=== PATIENT | male | born 1965 | race Caucasian/White ===

== ENCOUNTER → 2016-06-04 | Outpatient (CLI) | payer MEDICAID ==
--- NOTE | 2016-06-04 14:37 | US ---
Complete Retroperitoneal Ultrasound History: Possible nephrolithiasis. Comparison: Plain film abdomen April 13, 2016. Findings: The right kidney measures 12.2 x 6.7 x 6.7 cm and the left kidney measures 12.4 x 6.0 x 6.6 cm. There are small echogenic foci in the kidneys bilaterally that could represent artifact or nonob structing stones, measuring up to 7 mm bilaterally. The kidneys otherwise have normal echotexture, co rtical thickness, and contour without pelvocaliectasis. Diffuse fatty infiltration of the liver is no chastity. The bladder is decompressed on prevoid imaging, measuring 32 mm. Post void imaging was not performed. Ureteral jets were not visualized. Impression: 1. Bilateral echogenic foci that could be related to artifact or nonobstructing nephrolithiasis. 2. Fatty liver. 3. Additional findings as above.
== END ==
LOC: BRMIMAGING 13:33
PROVIDERS: ATTEND Physician Assistant Medical
DX: N20.1 Calculus of ureter (principal); K76.0 Fatty (change of) liver, not elsewhere classified
CPT/HCPCS: 76770-PO

== ENCOUNTER 2016-08-15 12:21 | Day surgery (SDC) | payer MEDICAID ==
[2016-08-15 13:16] LABS: INR 1.14 (0.83-1.16); PROTIME(PATIENT) 14.5 SEC (12.0-15.0)
--- NOTE | 2016-08-15 13:24 | CPEKG ---
Heart Rate: 119 RR Interval: 504 QRSD Interval: 90 QT Interval: 320 QTC Interval: 451 QRS Heppner: -18 T Wave Heppner: -70 EKG Severity - ABNORMAL ECG - EKG Impression: ATRIAL FIBRILLATION, V-RATE 85-179 EKG Impression: BORDERLINE LEFT AXIS DEVIATION EKG Impression: NONSPECIFIC T ABNORMALITIES, DIFFUSE LEADS Electronically Signed By: Talon Ramos 15-Aug-2016 16:24:30
[2016-08-15] MEDS ORDERED: LR 1,000 ML IV ONE (13:31)
[2016-08-15] MEDS ORDERED: ALBUTEROL 3 ML DEYVIAL ONE (13:41)
[2016-08-15] MEDS ORDERED: PROPOFOL 200 MG/20 ML VIAL ONE ×3 (13:59→14:18)
--- NOTE | 2016-08-15 15:09 | GPN ---
[f rep st] PROCEDURE NOTE PROCEDURE PERFORMED: Colonoscopy. INDICATION: The patient is a 51-year-old male who has had approximately 15 years of abdominal pain and altered bowel habits, tending mostly constipation. This seems to have been a problem ever since a right hemicolectomy for some form of colonic narrowing. Colonoscopy is being performed to evalua te for any structural explanation for his symptoms. PROCEDURE: After the proper consent was obtained, patient placed in lithotomy position, received IV general anesthesia due to his ASA class of 3. Video colonoscope was introduced through the anus and rectum up the left colon, across the transvers e colon to the ileocolonic anastomosis. The anastomosis is widely patent, and I am able to easily t raverse into the ileum. On retraction of the instrument, no polyps, tumors, lesions, or strictures are noted. At this point, instrument was removed. Patient tolerated procedure well, and was returned to [facility] in stable condition. RECOMMENDATIONS: 1. For colon cancer screening, next colonoscopy in 10 years' time. 2. I think it is worthwhile to treat this patient for having irritable bowel syndrome with constipa tion. I suggested Linzess 290 mcg daily as an empiric trial. /[id number]/MODL
== END 2016-08-15 15:50 | disposition home or self-care (01) ==
LOC: FSGY 12:21
PROVIDERS: ATTEND Internal Medicine Gastroenterology
PROC: 0DJD8ZZ Inspection of Lower Intestinal Tract, Via Natural or Artificial Opening Endoscopic (ICD-10-PCS; principal; 2016-08-15 13:45)
DX: R10.9 Unspecified abdominal pain (principal); R19.4 Change in bowel habit; R14.0 Abdominal distension (gaseous); E66.01 Morbid (severe) obesity due to excess calories; M10.9 Gout, unspecified; E78.5 Hyperlipidemia, unspecified; I10 Essential (primary) hypertension; K58.9 Irritable bowel syndrome, unspecified; G47.33 Obstructive sleep apnea (adult) (pediatric); J45.909 Unspecified asthma, uncomplicated; I48.91 Unspecified atrial fibrillation; I27.2 Other secondary pulmonary hypertension; Z90.49 Acquired absence of other specified parts of digestive tract; Z79.01 Long term (current) use of anticoagulants
CPT/HCPCS: J2704

== ENCOUNTER → 2017-01-16 | Outpatient (CLI) | payer MEDICAID | LOC: FIMAGING 09:54 → EDSTATUS 11:41 | PROVIDERS: ATTEND Specialist | DX: N20.0 Calculus of kidney (principal) ==

== ENCOUNTER → 2017-01-22 | Outpatient (CLI) | payer MEDICAID | LOC: FIMAGING 09:01 | PROVIDERS: ATTEND Physician Assistant Medical | DX: N20.0 Calculus of kidney (principal); R31.9 Hematuria, unspecified ==

== ENCOUNTER 2017-01-24 10:58 | Day surgery (SDC) | payer MEDICAID ==
[2017-01-24] MEDS ORDERED: LR 1,000 ML IV ONE (11:09)
[2017-01-24 11:59] LABS: INR 1.16 (0.83-1.16); PROTIME(PATIENT) 14.8 SEC (12.0-15.0)
[2017-01-24] MEDS ORDERED: LIDOCAINE 1% 2 ML INJ ID PRN (12:00)
[2017-01-24] MEDS ORDERED: levOFLOXACIN 500 MG/DEXTROSE 100 ML IV ONE (12:00)
[2017-01-24] MEDS ORDERED: IOPAMIDOL (ISOVUE-M 300) 15 ML VIAL ONE ×2 (12:31→14:36)
[2017-01-24] MEDS ORDERED: LIDOCAINE 2% JELLY 20 ML (UROJECT) ONE (12:31)
[2017-01-24] MEDS ORDERED: ALBUTEROL 3 ML DEYVIAL IH PRN (13:19)
[2017-01-24] MEDS ORDERED: ONDANSETRON 4 MG/2 ML VIAL IVP PRN (13:19)
[2017-01-24] MEDS ORDERED: ACETAMINOPHEN 500 MG TAB PO PRN (13:19)
[2017-01-24] MEDS ORDERED: NALOXONE HCL 0.4 MG/ML INJ IVP PRN (13:19)
--- NOTE | 2017-01-24 13:21 | PDANEPAE ---
ANE History of Present Illness Uerteroscopy w/ laser ANE Past Medical History - Cardiovascular History Hx Hypertension: Yes Hx Arrhythmias: Yes Hx Chest Pain: No Hx Coronary Artery / Peripheral Vascular Disease: No Hx CHF / Valvular Disease: No Hx Palpitations: No Cardiovascular History Comment: afib intermittent. htn. hyperlipidemia. [place] [facility] [place] in 4 yrs - Pulmonary History Hx COPD: No Hx Asthma/Reactive Airway Disease: Yes Hx Recent Upper Respiratory Infection: No Hx Oxygen in Use at Home: Yes Hx Sleep Apnea: Yes Sleep Apnea Screening Result - Last Documented: Positive Pulmonary History Comment: asthma- hasn't been a problem in a couple years. uses 3L 02 instead of cpap for junior. 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 constant stomach issues. hx of bowel resection 17 yrs ago - Other Health History Other Health History: gout - Chronic Pain History Chronic Pain: No (STOMACH AND BACK) - Surgical History Prior Surgeries: removal of brain tumor 2014 and vertebrae repair 1.5 yrs ago 2015. 17 yrs ago 1ft removed of bowel for tumor ANE Review of Systems Review of Systems: - Exercise capacity METS (RN): 4 METS ANE Patient History - Allergies Allergies/Adverse Reactions: No Known Allergies Allergy (Verified 08/13/16 13:56) - Home Medications Home Medications: Allopurinol 08/13/16 [Last Taken 01/23/17] Keppra 08/13/16 [Last Taken 01/24/17 09:30] Metoprolol Tartrate 08/13/16 [Last Taken 01/24/17 09:30] Warfarin Sodium 08/13/16 [Last Taken 01/18/17] [place] 5/325 (*) PRN 01/24/17 [Last Taken 01/24/17 06:00] - NPO status NPO Since - Liquids (Date): 01/24/17 NPO Since - Liquids (Time): 00:00 NPO Since - Solids (Date): 01/23/17 NPO Since - Solids (Time): 18:00 - Smoking Hx Smoking Status: Never smoked - Family Anes Hx Family Hx Anesthesia Complications: none ANE Labs/Vital Signs - Vital Signs Blood Pressure: 153/94 Heart Rate: 84 Respiratory Rate: 16 O2 Sat (%): 93 Height: 177.8 cm Weight: 145.15 kg ANE Physical Exam - Airway Neck exam: FROM Mallampati Score: Class 2 Mouth exam: normal dental/mouth exam - Pulmonary Pulmonary: clear to auscultation - Cardiovascular Cardiovascular: regular rate and rhythym - ASA Status ASA Status: III ANE Anesthesia Plan Anesthesia Plan: GA w LMA
[2017-01-24] MEDS ORDERED: LIDOCAINE 2% 5 ML SDV ONE (13:29)
[2017-01-24] MEDS ORDERED: PROPOFOL/EMULSION 500 MG/50 ML BOTTLE IV ONE (13:29)
[2017-01-24] MEDS ORDERED: fentaNYL 100 MCG/2 ML INJ ONE ×4 (13:31→16:22)
[2017-01-24] MEDS ORDERED: ONDANSETRON 4 MG/2 ML VIAL ONE (13:33)
[2017-01-24] MEDS ORDERED: DEXAMETHASONE 4 MG/ML VIAL ONE (13:33)
--- NOTE | 2017-01-24 13:37 | PDHPUP ---
History & Physical Update H&P update statement: This history and physical update is based on an assessment of the patient which was completed after admission or registration (within 24 hours), but prior to the surgery/procedure. H&P update: no change in patient's condition since H&P completed
--- NOTE | 2017-01-24 14:43 | POSTOPPROG ---
Post Op Note Date of Operation: 01/24/17 Surgeon: Rayo Albarado Anesthesia: GET(General Endotracheal) Pre-op Diagnosis: Right proximal ureteral calculus Post-op Diagnosis: Right UPJ calculus Procedure: Right ureteroscopy w/ calculus manipulation, ureteral stent placement Findings: See op note Inf/Abcess present in the surg proc area at time of surgery?: No EBL: Minimal Complications: None Drains: Other (4.7 Fr. x 26 cm right ureteral stent) Specimen(s): None
[2017-01-24] MEDS ORDERED: PHENAZOPYRIDINE HCL 200 MG TAB PO ONE (14:45)
--- NOTE | 2017-01-24 15:07 | POSTANESTH ---
Post Anesthetic Evaluation Cardiovascular Status: Normal, Stable Respiratory Status: Normal, Stable Level of Consciousness/Mental Status: Can Participate in Eval, Alert and Oriented Pain Control: Adequate, Prn Tx Ordered Nausea/Vomiting Control: Adequate, Prn Tx Ordered Complications Possibly Related to Anesthesia: None Noted
[2017-01-24] MEDS ORDERED: PHENAZOPYRIDINE HCL 200 MG TAB ONE (15:08)
--- NOTE | 2017-01-24 15:10 | POSTOPPROG ---
Post Op Note Date of Operation: 01/24/17 Surgeon: Rayo Albarado ([id number]) Anesthesia: GET(General Endotracheal) Pre-op Diagnosis: Right proximal ureteral calculus Post-op Diagnosis: Right UPJ calculus Procedure: Ureteroscopy w/ calculus manipulation, ureteral stent placement Findings: See op note Inf/Abcess present in the surg proc area at time of surgery?: No EBL: Minimal Complications: None Drains: Other (4.7 Fr. x 26 cm right ureteral stent)
[2017-01-24] MEDS: fentaNYL 100 MCG/2 ML INJ IVP PRN ×3 (15:23→16:25)
[2017-01-24 15:35] VITALS: TEMP 97.9
[2017-01-24 16:10] VITALS: PULSE 80; RESP 16
[2017-01-24] MEDS ORDERED: HYDROCODONE/APAP 5/325 TAB PO PRN (16:52)
[2017-01-24 17:13] VITALS: BP 133/99; O2SAT 95
--- NOTE | 2017-01-24 17:46 | GOP ---
[f rep st] OPERATIVE REPORT DATE OF OPERATION: 01/24/2017 SURGEON: Rayo Albarado MD ANESTHESIA: General endotracheal. PREOPERATIVE DIAGNOSIS: Symptomatic right proximal ureteral calculus. POSTOPERATIVE DIAGNOSIS: Symptomatic right ureteropelvic junction calculus. PROCEDURE PERFORMED: 1. Cystourethroscopy, right retrograde pyelography. 2. Right ureteroscopy with calculus manipulation. 3. Right ureteral stent placement (4.7-[place] x 26 cm). FINDINGS: Renal calculus that was initially located at the ureteropelvic junction that appeared to migrate into the renal pelvis during the course of the operation with endoscopic manipulation. SPECIMENS: None. ESTIMATED BLOOD LOSS: Minimal. INDICATIONS: This gentleman has had symptoms related to a right proximal ureteral calculus. He presents for operative management at this time. The indications for the procedures as well as potential risks and complications were discussed with the patient preoperatively. He appeared to understand, his questions were answered, and he wished to proceed. Written informed surgical consent was thereafter obtained. DESCRIPTION OF PROCEDURE: The patient was brought to the operating room and administered general endotracheal anesthesia. He was carefully placed in a dorsal lithotomy position on the cystoscopic table. The genital area was sterilely prepped with Betadine scrub and paint, then draped in the usual sterile fashion. I initially attempted to perform cystoscopy with a 30-degree lens through a 22-[place] sheath. There was some narrowing of the urethral meatus which required dilation with Garcia sounds up to 24-[place]. The remainder of the anterior urethra was unremarkable. Posterior urethra revealed mild BPH with a high median bar. The bladder was mildly trabeculated but without areas of abnormal erythema, tumors, or foreign bodies. Ureteral orifices were normal in regard to shape and position along the trigone. A 5-[place] open-ended ureteral catheter was used to perform retrograde pyelography on the right side. This revealed a filling defect at the ureteropelvic junction with mild proximal hydronephrosis, consistent with the location of the calculus seen on preoperative imaging. No other intraluminal abnormalities were appreciated. I then advanced a 0.035-inch hydrophilic guidewire up the right ureter, with the aid of the 5-[place] open-ended ureteral catheter, and advanced the guidewire into the renal collecting system as noted fluoroscopically. It was unclear. At this point, it appeared the stone had possibly migrated into the renal pelvis. Therefore, I decided to proceed initially with flexible ureteroscopy. A 10 cm balloon was then used to dilate the entire length of the ureter distal to the ureteropelvic junction with 3 separate inflations and deflations up to 16 atmospheres for about 3 minutes on each occasion. The balloon dilator and cystoscope were then removed while keeping the guidewire in place. Cystoscope was reinserted and a 2nd guidewire, this one being a 0.035- inch Amplatz superstiff guidewire, was advanced up the right ureter and into the renal collecting system as noted fluoroscopically. There were now [address] Under active fluoroscopy, I then attempted to advance a 55 cm hydrophilic ureteral access sheath over the Amplatz guidewire. However, I ran into resistance at about L4 and could not get the access sheath to pass any further proximal to that. There was buckling of the access sheath distal to the ureteral meatus within the bladder. At this point, I decided to proceed with semi-rigid ureteroscopy. The 0.035-inch hydrophilic guidewire was left in place. The Amplatz guidewire had been removed. Semi-rigid ureteroscopy was performed alongside the remaining guidewire. I was only able to advance the ureteroscope up to the level of the crossing iliac vessels. The ureter then took a deviated turn upward which made it difficult to advance the ureteroscope any further proximally. I decided not to force the issue and risk injury to the ureter. Therefore, the ureteroscope was removed and the cystoscope was back -loaded over the guidewire. A 4.7-[place] x 26 cm hydrophilic ureteral stent was advanced over the guidewire until it was properly positioned as seen fluoroscopically in the kidney and cystoscopically in the bladder. The bladder was then drained of all return which was relatively clear. The instruments were removed and 20 cc of 2% lidocaine injected transurethrally for postoperative analgesic purposes. The patient was then awakened, extubated, transferred to his bed, then taken to the recovery room. He tolerated the procedure well overall. COMPLICATIONS: None. DISPOSITION: He was transferred to the recovery room in stable condition. He will be discharged with instructions to return to my office in 1-2 weeks with a repeat KUB and probable rescheduling of attempted ureteroscopy thereafter. PRIMARY CARE DOCTOR: Rita Ernandez MD. /[id number]/MODL MTDD
== END 2017-01-24 17:11 | disposition home or self-care (01) ==
LOC: FSGY 10:58
PROVIDERS: ATTEND Specialist
PROC: 0TJB8ZZ Inspection of Bladder, Via Natural or Artificial Opening Endoscopic (ICD-10-PCS; principal; 2017-01-24 13:00)
PROC: 0T767DZ Dilation of Right Ureter with Intraluminal Device, Via Natural or Artificial Opening (ICD-10-PCS; principal; 2017-01-24 13:00)
PROC: 0TJ98ZZ Inspection of Ureter, Via Natural or Artificial Opening Endoscopic (ICD-10-PCS; principal; 2017-01-24 13:00)
DX: N20.0 Calculus of kidney (principal); I10 Essential (primary) hypertension; I48.91 Unspecified atrial fibrillation; J45.909 Unspecified asthma, uncomplicated; G47.33 Obstructive sleep apnea (adult) (pediatric); Z86.011 Personal history of benign neoplasm of the brain
CPT/HCPCS: 50572; 52332; 76001; C1726; C1758; C1769; C1894; C2625; J1100; J1956; J2405; J2704; J3010; Q9967

== ENCOUNTER 2017-02-21 06:39 | Day surgery (SDC) | payer MEDICAID ==
[~2017-02-21 06:39] MED LIST: levOFLOXACIN 500 MG/DEXTROSE 100 ML IV ONE
[2017-02-21] MEDS ORDERED: LIDOCAINE 1% 2 ML INJ ID PRN (06:54)
[2017-02-21] MEDS ORDERED: LR 1,000 ML IV ONE (06:54)
[2017-02-21] MEDS ORDERED: LIDOCAINE 2% JELLY 20 ML (UROJECT) ONE (07:29)
[2017-02-21] MEDS ORDERED: IOPAMIDOL (ISOVUE-M 300) 15 ML VIAL ONE (07:30)
[2017-02-21 07:50] VITALS: PULSE 94
[2017-02-21] MEDS ORDERED: levOFLOXACIN 500 MG/DEXTROSE/100 ML BAG IV ONE (07:53)
[2017-02-21 07:54] LABS: INR 1.17 (0.83-1.16); PROTIME(PATIENT) 14.9 SEC (12.0-15.0)
--- NOTE | 2017-02-21 08:52 | PDANEPAE ---
ANE History of Present Illness Patient presents for Ureteroscopy and stent placement ANE Past Medical History - Cardiovascular History Hx Hypertension: Yes Hx Arrhythmias: Yes Hx Chest Pain: No Hx Coronary Artery / Peripheral Vascular Disease: No Hx CHF / Valvular Disease: No Hx Palpitations: No Cardiovascular History Comment: afib. htn. hyperlipidemia. [place] [facility] [place] in 4 yrs - Pulmonary History Hx COPD: No Hx Asthma/Reactive Airway Disease: Yes Hx Recent Upper Respiratory Infection: No Hx Oxygen in Use at Home: Yes Hx Sleep Apnea: Yes Sleep Apnea Screening Result - Last Documented: Positive Pulmonary History Comment: asthma- hasn't been a problem in a couple years. uses o2 instead of cpap for junior. 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 constant stomach issues. hx of bowel resection 17 yrs ago - Other Health History Other Health History: gout - Chronic Pain History Chronic Pain: No - Surgical History Prior Surgeries: removal of brain tumor and vertebrae repair 1.5 yrs ago. 17 yrs ago 1ft removed of bowel for tumor ANE Review of Systems Review of Systems: - Exercise capacity METS (RN): 4 METS ANE Patient History - Allergies Allergies/Adverse Reactions: No Known Allergies Allergy (Verified 08/13/16 13:56) - Home Medications Home medications: home medication list seen and reviewed Home Medications: Allopurinol DAILY AT 6PM 08/13/16 [Last Taken 02/20/17] Keppra BID 08/13/16 [Last Taken 02/20/17] Metoprolol Tartrate BID 08/13/16 [Last Taken 02/20/17] Warfarin Sodium DAILY 08/13/16 [Last Taken 02/16/17] Herbal Drugs DAILY 02/12/17 [Last Taken 02/14/17] Phenazopyridine HCl [Pyridium] 200 mg PO BID 02/12/17 [Last Taken 02/20/17] - NPO status NPO Status: no food or drink >8 hours NPO Since - Liquids (Date): 02/20/17 NPO Since - Liquids (Time): 23:00 NPO Since - Solids (Date): 02/20/17 NPO Since - Solids (Time): 23:00 - Anes Hx Anes Hx: no prior problems - Smoking Hx Smoking Status: Never smoked - Family Anes Hx Family Hx Anesthesia Complications: none ANE Labs/Vital Signs - Vital Signs Blood Pressure: 124/80 Heart Rate: 94 Respiratory Rate: 16 O2 Sat (%): 90 Height: 177.8 cm Weight: 145.15 kg ANE Physical Exam - Airway Neck exam: FROM Mallampati Score: Class 4 Mouth exam: small mouth opening - Pulmonary Pulmonary: no respiratory distress - Cardiovascular Cardiovascular: regular rate and rhythym - ASA Status ASA Status: IV ANE Anesthesia Plan Anesthesia Plan: general endotracheal anesthesia (RBA discussed)
[2017-02-21] MEDS ORDERED: fentaNYL 100 MCG/2 ML INJ ONE (08:59)
[2017-02-21] MEDS ORDERED: PROPOFOL 200 MG/20 ML VIAL ONE ×2 (08:59→09:05)
[2017-02-21] MEDS ORDERED: ALBUTEROL HFA ANES ONLY 200 PUFFS/8.5 GM MDI IH ONE (09:00)
[2017-02-21] MEDS ORDERED: SUCCINYLCHOLINE CHLORIDE*ANESTHESIA ONLY*200 MG/10 ML SYR IVP ONE (09:00)
[2017-02-21] MEDS ORDERED: DEXAMETHASONE 4 MG/ML VIAL ONE (09:01)
[2017-02-21] MEDS ORDERED: ONDANSETRON 4 MG/2 ML VIAL ONE (09:01)
[2017-02-21] MEDS ORDERED: LIDOCAINE 2% 5 ML SDV ONE (09:05)
[2017-02-21] MEDS ORDERED: ROCURONIUM 50 MG/5 ML VIAL ONE ×2 (09:18→09:50)
[2017-02-21] MEDS ORDERED: PHENYLEPHRINE HCL 100 MCG/ML SYR ONE (09:33)
[2017-02-21] MEDS ORDERED: SUGAMMADEX SODIUM 200 MG/2 ML VIAL IVP ONE (09:55)
--- NOTE | 2017-02-21 10:11 | POSTOPPROG ---
Post Op Note Date of Operation: 02/21/17 Surgeon: Rayo Albarado (# [id number]) Anesthesia: GET(General Endotracheal) Pre-op Diagnosis: Right proximal ureteral calculus, s/p ureteral stent placement Post-op Diagnosis: Right proximal ureteral calculus, s/p ureteral stent placement Procedure: Right ureteroscopy w/ laser lithotripsy, ureteral stent replacement Findings: See op note Inf/Abcess present in the surg proc area at time of surgery?: No EBL: Minimal Complications: None Drains: Other (4.7 Fr. x 26 cm right ureteral stent) Specimen(s): None
--- NOTE | 2017-02-21 10:11 | POSTOPPROG ---
Post Op Note Date of Operation: 02/21/17 Surgeon: Rayo Albardao (# [id number]) Anesthesia: GET(General Endotracheal) Pre-op Diagnosis: Right proximal ureteral calculus, s/p ureteral stent placement Post-op Diagnosis: Right proximal ureteral calculus, s/p ureteral stent placement Procedure: Right ureteroscopy w/ laser lithotripsy, ureteral stent replacement Findings: See op note Inf/Abcess present in the surg proc area at time of surgery?: No EBL: Minimal Complications: None Drains: Other (4.7 Fr. x 26 cm right ureteral stent) Specimen(s): None
--- NOTE | 2017-02-21 10:11 | POSTOPPROG ---
Post Op Note Date of Operation: 02/21/17 Surgeon: Rayo Albarado (# [id number]) Anesthesia: GET(General Endotracheal) Pre-op Diagnosis: Right proximal ureteral calculus, s/p ureteral stent placement Post-op Diagnosis: Right proximal ureteral calculus, s/p ureteral stent placement Procedure: Right ureteroscopy w/ laser lithotripsy, ureteral stent replacement Findings: See op note Inf/Abcess present in the surg proc area at time of surgery?: No EBL: Minimal Complications: None Drains: Other (4.7 Fr. x 26 cm right ureteral stent) Specimen(s): None
[2017-02-21] MEDS ORDERED: ONDANSETRON 4 MG/2 ML VIAL IVP PRN (10:18)
[2017-02-21] MEDS ORDERED: NALOXONE HCL 0.4 MG/ML INJ IVP PRN ×2 (10:18)
[2017-02-21] MEDS ORDERED: LR 500 ML IV PRN (10:18)
--- NOTE | 2017-02-21 10:20 | POSTANESTH ---
Post Anesthetic Evaluation Cardiovascular Status: Normal, Stable, Similar to Pre-Op Cond Respiratory Status: Similar to Pre-op Cond. Level of Consciousness/Mental Status: Can Participate in Eval Pain Control: Adequate, Prn Tx Ordered Nausea/Vomiting Control: Adequate, Prn Tx Ordered Complications Possibly Related to Anesthesia: None Noted
[2017-02-21] MEDS ORDERED: PHENAZOPYRIDINE HCL 200 MG TAB PO ONE (10:30)
--- NOTE | 2017-02-21 10:48 | GOP ---
[f rep st] OPERATIVE REPORT DATE OF OPERATION: 02/21/2017 SURGEON: Rayo Albarado MD ANESTHESIA: General endotracheal. PREOPERATIVE DIAGNOSIS: Right proximal ureteral calculus, status post right ureteral stent placement. POSTOPERATIVE DIAGNOSIS: Right proximal ureteral calculus, status post right ureteral stent placement. PROCEDURE PERFORMED: 1. Cystourethroscopy, right retrograde pyelography. 2. Right ureteral stent removal. 3. Right ureteroscopy and nephroscopy with holmium laser calculus lithotripsy. 4. Right ureteral stent replacement (4.7 [place] x 26 cm). FINDINGS: Right proximal ureteral calculus which was manipulated into the renal collecting system then treated as noted in the body of the operative report. SPECIMENS: None. ESTIMATED BLOOD LOSS: Minimal. INDICATIONS: This gentleman recently presented with a symptomatic right proximal ureteral calculus. I was unable to remove it at the time of initial ureteroscopy approximately 2 weeks ago. Ureteral stent was placed at that time. He presents for repeat operative intervention at this time. The indications for the procedures as well as potential risks and complications, were discussed with the patient preoperatively. He appeared to understand, his questions were answered, and he wished to proceed. Written informed surgical consent was thereafter obtained. DESCRIPTION OF PROCEDURE: The patient was brought to the operating room and administered general endotracheal anesthesia. He was carefully placed in the dorsal lithotomy position on the cystoscopic table. The genital area was sterilely prepped with Betadine scrub and paint then draped in usual sterile fashion. Cystoscopy was performed with a 30-degree lens through a 22-Citizen [place] sheath. Anterior urethra revealed mild narrowing of the fossa navicularis. The remainder of the anterior urethra was unremarkable. Posterior urethra revealed no significant BPH. Examination of the bladder revealed previously placed right ureteral stent exiting from the right ureteral orifice. I used flexible grasping forceps to remove the distal tip of this stent out through the urethral meatus. However, upon doing so, the stent completely extracted from the right ureter. The stent was then completely removed, and a 0.035 inch hydrophilic guidewire was advanced up the right ureter until the proximal tip was seen within the renal collecting system fluoroscopically. I then proceeded with semi-rigid ureteroscopy. The ureteroscope was advanced alongside the guidewire. I was only able to advance the ureteroscope up to the portion of the mid ureter, even with the aid of a 0.035 inch Amplatz guidewire being utilized as a stiffener through the ureteroscope. I then decided to proceed with flexible ureteroscopy. The Amplatz guidewire was advanced all the way into the renal collecting system, thereby keeping [address] Semi- rigid ureteroscope was removed. Under active fluoroscopy, a 55 cm hydrophilic ureteral access sheath was advanced over the Amplatz guidewire until the proximal extent was at the ureteropelvic junction. The inner obturator and Amplatz guidewire were then removed, thereby keeping the outer access sheath and the second guidewire in place. Flexible ureteroscopy and nephroscopy were performed through the ureteral access sheath. The calculus was identified within the renal pelvis. A 200 micron holmium laser fiber was used to fragment the calculus into pieces less than 1 mm in diameter. None of these fragments were retrieved. No other dominant stones were obviously seen. The ureteroscope and ureteral access sheath were then removed in tandem. It should be mentioned that before doing so, contrast was injected through the flexible ureteroscope, and the renal collecting system was otherwise unremarkable with the exception of some mild dilation. Examination of the ureter with contrast injected through the semi-rigid ureteroscope earlier revealed no obvious abnormalities either. The flexible ureteroscope and ureteral access sheath were then removed in tandem. There was some mild inflammation and edema of the ureter, but it was otherwise unremarkable. The cystoscope was back loaded over the remaining guidewire, and a 4.7-Citizen [place] x 26 cm hydrophilic ureteral stent advanced over the guidewire until it was properly positioned as seen fluoroscopically in the kidney and cystoscopically in the bladder. The bladder was then drained of all return, which was light pink. The instruments were removed and 20 cc of 2% lidocaine injected transurethrally for postoperative analgesic purposes. The patient was then awakened, extubated, transferred to his bed, then taken to the recovery room. He tolerated the procedure well overall. COMPLICATIONS: None. DISPOSITION: He was transferred to Recovery in stable condition. He will be instructed to return to my office in 2 weeks for ureteral stent removal. /[id number]/MODL MTDD
[2017-02-21 11:02] VITALS: TEMP 97.9
[2017-02-21] MEDS ORDERED: HYDROCODONE/APAP 5/325 TAB PO PRN (11:08)
[2017-02-21] MEDS ORDERED: HYDROCODONE/APAP 5/325 TAB ONE (11:11)
[2017-02-21] MEDS ORDERED: PHENAZOPYRIDINE HCL 200 MG TAB ONE (11:12)
[2017-02-21 11:39] VITALS: RESP 16
[2017-02-21 14:23] VITALS: BP 98/80; O2SAT 92
== END 2017-02-21 14:23 | disposition home or self-care (01) ==
LOC: FSGY 06:39
PROVIDERS: ATTEND Specialist
PROC: 0TP570Z Removal of Drainage Device from Kidney, Via Natural or Artificial Opening (ICD-10-PCS; principal; 2017-02-21 08:30)
PROC: 0TC68ZZ Extirpation of Matter from Right Ureter, Via Natural or Artificial Opening Endoscopic (ICD-10-PCS; principal; 2017-02-21 08:30)
PROC: 0T9070Z Drainage of Right Kidney with Drainage Device, Via Natural or Artificial Opening (ICD-10-PCS; principal; 2017-02-21 08:30)
DX: N20.2 Calculus of kidney with calculus of ureter (principal); M10.9 Gout, unspecified; J45.909 Unspecified asthma, uncomplicated; I48.91 Unspecified atrial fibrillation; G40.909 Epilepsy, unspecified, not intractable, without status epilepticus; I10 Essential (primary) hypertension; E78.5 Hyperlipidemia, unspecified; G47.33 Obstructive sleep apnea (adult) (pediatric); I27.20 Pulmonary hypertension, unspecified; Z86.011 Personal history of benign neoplasm of the brain
CPT/HCPCS: 52356; 76001; C1758; C1769; C1894; C2625; J0330; J1100; J1956; J2370; J2405; J2704; J3010; Q9967